=== PATIENT | female | born 1990 | race Caucasian/White ===

== ENCOUNTER 2017-04-10 18:17 | Inpatient (IN) | payer OTHER ==
[~2017-04-10] VITALS: Ht 167.6 cm; Wt 93.2 kg
[2017-04-15] MEDS: D5%-LACTATED RINGERS 1,000 ML IV SCH (21:09)
[2017-04-15] MEDS ORDERED: OXYTOCIN 30U/ 0.9% NaCL 500ML 500 ML IV ONE (21:09)
[2017-04-15 21:28] LABS: BASOPHILS # (AUTO) 0.11 x10^3/uL (0-0.1); BASOPHILS % (AUTO) 1 % (0-1); EOSINOPHILS # (AUTO) 0.05 x10^3/uL (0-0.4); EOSINOPHILS % (AUTO) 0 % (1-7); LYMPHOCYTES # (AUTO) 2.64 x10^3/uL (1-3.4); LYMPHOCYTES % (AUTO) 23 % (22-44); MD NO; MEAN CORPUSCULAR HEMOGLOBIN 31.3 pg (27.0-34.8); MEAN CORPUSCULAR HGB CONC 34.1 g/dL (32.4-35.8); MEAN CORPUSCULAR VOLUME 91.6 fL (80-100); MEAN PLATELET VOLUME 9.7 fL (7.4-10.4); MONOCYTES # (AUTO) 0.81 x10^3/uL (0.2-0.8); MONOCYTES % (AUTO) 7 % (2-9); NEUTROPHILS # (AUTO) 7.92 x10^3/uL (1.8-6.8); NEUTROPHILS % (AUTO) 69 % (42-75); PLATELET COUNT 240 x10^3/uL (130-400); RED BLOOD COUNT 4.08 x10^6/uL (3.82-5.3); RED CELL DISTRIBUTION WIDTH 14.5 % (9.6-15.2)
[2017-04-15 21:30] VITALS: BP 127/82
[2017-04-15] MEDS ORDERED: FENTANYL PF 100 MCG/2ML IV PRN (21:30)
[2017-04-15] MEDS ORDERED: ONDANSETRON 2MG/ML, 2ML IVPush PRN (21:30)
[2017-04-15] MEDS ORDERED: CALCIUM CARBONATE 500 MG TAB.CHEW PO PRN (21:30)
[2017-04-15] MEDS ORDERED: NEWBORN KIT ONE (21:33)
[2017-04-15] MEDS: LACTATED RINGERS 1,000 ML IV SCH (21:42)
[2017-04-15] MEDS ORDERED: MISOPROSTOL 25 MCG TABLET ONE (22:40)
[2017-04-15] MEDS: MISOPROSTOL 25 MCG TABLET SL PRN (22:50)
[2017-04-15] MEDS ORDERED: PREN1TAB60 PO (23:04)
[2017-04-15] MEDS ORDERED: iron PO (23:04)
[2017-04-16] MEDS ORDERED: MISOPROSTOL 25 MCG TABLET ONE ×3 (03:05→03:06)
[2017-04-16] MEDS: MISOPROSTOL 25 MCG TABLET SL PRN (03:08)
[2017-04-16] MEDS: D5%-LACTATED RINGERS 1,000 ML IV SCH ×3 (05:09→21:09)
[2017-04-16] MEDS ORDERED: FENTANYL PF 100 MCG/2ML ONE ×2 (06:00→07:42)
[2017-04-16] MEDS: FENTANYL PF 100 MCG/2ML IVPush PRN ×2 (06:06→07:45)
[2017-04-16] MEDS: LACTATED RINGERS 1,000 ML IV SCH ×5 (07:45→21:09)
[2017-04-16] MEDS ORDERED: FENTANYL/BUPIV./NS/PF 250 ML EPIDCONT ONE (09:15)
[2017-04-16] MEDS ORDERED: BUPIVACAINE 0.25% ONE (09:15)
[2017-04-16] MEDS ORDERED: FENTANYL/BUPIV./NS/PF 250 ML EPIDCONT SCH (09:46)
[2017-04-16] MEDS ORDERED: LACTATED RINGERS 1,000 ML IVBOLUS PRN (10:00)
[2017-04-16] MEDS ORDERED: OXYTOCIN 30U/ 0.9% NaCL 500ML 500 ML IV PRN (11:44)
[2017-04-16] MEDS ORDERED: OXYTOCIN 30U/ 0.9% NaCL 500ML 500 ML ONE (11:51)
[2017-04-16] MEDS ORDERED: ONDANSETRON 2MG/ML, 2ML ONE (16:16)
[2017-04-16] MEDS ORDERED: LIDOCAINE 1%, 20ML ONE (19:12)
[2017-04-16 19:24] VITALS: BP 108/66
[2017-04-17] MEDS ORDERED: RHOGAM FROM BLOOD BANK 1 NOTE EA IM/IV ONE
[2017-04-17] MEDS ORDERED: ONDANSETRON 2MG/ML, 2ML IV PRN
[2017-04-17] MEDS ORDERED: MAGNESIUM HYDROXIDE 8%, 30ML UDC PO PRN
[2017-04-17] MEDS ORDERED: CALCIUM CARBONATE 500 MG TAB.CHEW PO PRN
[2017-04-17] MEDS ORDERED: DIPH,PERTUSS(ACELL),TET VAC/PF NC IM-VACC PRN
[2017-04-17] MEDS ORDERED: MEASLES,MUMPS&RUBELLA VACC/PF 0.5 ML SQ PRN
[2017-04-17] MEDS ORDERED: MISOPROSTOL 200 MCG TABLET PR PRN
[2017-04-17] MEDS ORDERED: OXYcodone/APAP 5/325MG TABLET PO PRN
[2017-04-17] MEDS ORDERED: DOCUSATE 100 MG CAPSULE PO PRN
[2017-04-17] MEDS ORDERED: ACETAMINOPHEN 325 MG TABLET PO PRN ×2
[2017-04-17] MEDS ORDERED: IBUPROFEN 600 MG TABLET ONE (01:39)
[2017-04-17] MEDS ORDERED: OXYTOCIN 30U/ 0.9% NaCL 500ML 500 ML ONE (01:40)
[2017-04-17] MEDS: IBUPROFEN 600 MG TABLET PO PRN ×3 (01:42→14:16)
[2017-04-17] MEDS: OXYTOCIN 30U/ 0.9% NaCL 500ML 500 ML IV SCH ×3 (01:44→19:49)
[2017-04-17] MEDS: LACTATED RINGERS 1,000 ML IV SCH (01:46)
[2017-04-17 02:30] VITALS: BP 120/72
[2017-04-17 06:00] VITALS: BP 105/64
[2017-04-17 07:36] VITALS: BP 108/64
[2017-04-17] MEDS: PRENATAL VIT/IRON/FA 1 EACH TABLET PO SCH (08:01)
[2017-04-17] MEDS: OXYcodone/APAP 5/325MG TABLET PO PRN ×2 (08:01→14:16)
[2017-04-17 08:22] LABS: MEAN CORPUSCULAR HEMOGLOBIN 31.5 pg (27.0-34.8); MEAN CORPUSCULAR HGB CONC 34.1 g/dL (32.4-35.8); MEAN CORPUSCULAR VOLUME 92.3 fL (80-100); MEAN PLATELET VOLUME 9.4 fL (7.4-10.4); PLATELET COUNT 197 x10^3/uL (130-400); RED BLOOD COUNT 3.05 x10^6/uL (3.82-5.3); RED CELL DISTRIBUTION WIDTH 14.7 % (9.6-15.2)
[2017-04-17 08:48] LABS: BASOPHILS # (AUTO) 0.04 x10^3/uL (0-0.1); BASOPHILS % (AUTO) 0 % (0-1); EOSINOPHILS % (AUTO) 0 % (1-7); LYMPHOCYTES # (AUTO) 1.53 x10^3/uL (1-3.4); LYMPHOCYTES % (AUTO) 8 % (22-44); MD SCAN; MONOCYTES # (AUTO) 0.89 x10^3/uL (0.2-0.8); MONOCYTES % (AUTO) 5 % (2-9); NEUTROPHILS # (AUTO) 16.52 x10^3/uL (1.8-6.8); NEUTROPHILS % (AUTO) 87 % (42-75)
[2017-04-17] MEDS ORDERED: LIDOCAINE/MPF 2%-EPI 1:200K, 20 ML ONE (09:20)
[2017-04-17 12:15] VITALS: BP 99/64
[2017-04-17 16:50] VITALS: BP 101/72
[2017-04-17 19:13] VITALS: BP 102/59
[2017-04-17] MEDS ORDERED: MEASLES,MUMPS&RUBELLA VACC/PF 0.5 ML SQ-VACC ONE (20:30)
[2017-04-18] MEDS: OXYTOCIN 30U/ 0.9% NaCL 500ML 500 ML IV SCH (05:49)
[2017-04-18 07:35] VITALS: BP 113/69
[2017-04-18] MEDS: PRENATAL VIT/IRON/FA 1 EACH TABLET PO SCH (07:39)
[2017-04-18] MEDS: OXYcodone/APAP 5/325MG TABLET PO PRN (07:39)
[2017-04-18] MEDS: IBUPROFEN 600 MG TABLET PO PRN (07:40)
[2017-04-18] MEDS ORDERED: OXYC-302 PO (14:26)
== END 2017-04-18 15:00 | disposition home or self-care (01) | DRG 775 ==
LOC: UNDOADMIN 04-15 20:55 → LDIP 04-15 20:55 → 2NW 04-17 02:24
PROVIDERS: ADMIT Obstetrics & Gynecology; ATTEND Obstetrics & Gynecology
PROC: 10E0XZZ Delivery of Products of Conception, External Approach (ICD-10-PCS; principal; 2017-04-17)
PROC: 0KQM0ZZ Repair Perineum Muscle, Open Approach (ICD-10-PCS; 2017-04-17)
PROC: 3E0R3BZ Introduction of Anesthetic Agent into Spinal Canal, Percutaneous Approach (ICD-10-PCS; 2017-04-17)
PROC: 00HU33Z Insertion of Infusion Device into Spinal Canal, Percutaneous Approach (ICD-10-PCS; 2017-04-17)
DX: O70.1 Second degree perineal laceration during delivery (principal); Z37.0 Single live birth; Z3A.40 40 weeks gestation of pregnancy; Z82.3 Family history of stroke; Z82.49 Family history of ischemic heart disease and other diseases of the circulatory system; Z83.3 Family history of diabetes mellitus
CPT/HCPCS: 36415; 82803; 85025; 86850; 86900; J2405; J3010; J3490; J2590; J7120

== ENCOUNTER 2019-05-05 17:42 | Inpatient (IN) | payer BC ==
[~2019-05-05] VITALS: Ht 167.6 cm; Wt 90.9 kg
[~2019-05-05 17:42] MED LIST: OXYC-302 PO; PREN1TAB60 PO; iron PO
[2019-05-05] MEDS ORDERED: LIDOCAINE 1%, 20ML ONE (17:52)
[2019-05-05] MEDS ORDERED: MISOPROSTOL 200 MCG TABLET ONE (17:52)
[2019-05-05] MEDS ORDERED: OXYTOCIN 30U/ 0.9% NaCL 500ML 500 ML ONE ×2 (17:52→18:38)
[2019-05-05] MEDS ORDERED: NEWBORN KIT ONE (17:59)
[2019-05-05] MEDS: OXYTOCIN 30U/ 0.9% NaCL 500ML 500 ML IV SCH ×2 (18:13→18:40)
[2019-05-05] MEDS ORDERED: FENTANYL PF 100 MCG/2ML ONE (18:13)
[2019-05-05] MEDS ORDERED: ACETAMINOPHEN 325 MG TABLET PO PRN (19:00)
[2019-05-05] MEDS ORDERED: MISOPROSTOL 200 MCG TABLET PO PRN (19:00)
[2019-05-05] MEDS ORDERED: ONDANSETRON 2MG/ML, 2ML IV PRN (19:00)
[2019-05-05] MEDS ORDERED: SIMETHICONE 80 MG CHEW TAB PO PRN (19:00)
[2019-05-05] MEDS ORDERED: OXYcodone IR 5MG TABLET PO PRN (19:00)
[2019-05-05] MEDS ORDERED: DOCUSATE 100 MG CAPSULE PO PRN (19:00)
[2019-05-05] MEDS: LACTATED RINGERS 1,000 ML IV SCH ×2 (19:47→23:54)
[2019-05-05] MEDS ORDERED: FENTANYL PF 100 MCG/2ML IVPush PRN (20:00)
[2019-05-05 21:00] VITALS: BP 102/66
[2019-05-05] MEDS: IBUPROFEN 600 MG TABLET PO PRN (21:00)
[2019-05-05 23:49] VITALS: BP 104/65
[2019-05-06 05:20] VITALS: BP 106/67
[2019-05-06 06:09] LABS: BASOPHILS # (AUTO) 0.04 x10^3/uL (0-0.1); BASOPHILS % (AUTO) 0 % (0-1); EOSINOPHILS # (AUTO) 0.01 x10^3/uL (0-0.4); EOSINOPHILS % (AUTO) 0 % (1-7); LYMPHOCYTES # (AUTO) 2.81 x10^3/uL (1-3.4); LYMPHOCYTES % (AUTO) 19 % (22-44); MD NO; MEAN CORPUSCULAR HEMOGLOBIN 30.9 pg (27.0-34.8); MEAN CORPUSCULAR HGB CONC 33.1 g/dL (32.4-35.8); MEAN CORPUSCULAR VOLUME 93.4 fL (80-100); MEAN PLATELET VOLUME 8.4 fL (7.4-10.4); MONOCYTES % (AUTO) 6 % (2-9); NEUTROPHILS # (AUTO) 10.78 x10^3/uL (1.8-6.8); NEUTROPHILS % (AUTO) 74 % (42-75); PLATELET COUNT 259 x10^3/uL (130-400); RED BLOOD COUNT 3.36 x10^6/uL (3.82-5.3); RED CELL DISTRIBUTION WIDTH 14.3 % (9.6-15.2)
[2019-05-06 08:00] VITALS: BP 108/71
[2019-05-06] MEDS: IBUPROFEN 600 MG TABLET PO PRN ×2 (08:00→15:53)
[2019-05-06] MEDS ORDERED: PRENATAL VIT/IRON/FA 1 EACH TABLET PO SCH (09:00)
[2019-05-06] MEDS ORDERED: IBUP-1222 PO (12:46)
[2019-05-06 13:45] VITALS: BP 103/67
== END 2019-05-06 19:06 | disposition home or self-care (01) | DRG 806 ==
LOC: LDIP 17:42 → 2NW 20:35
PROVIDERS: ADMIT Obstetrics & Gynecology; ATTEND Obstetrics & Gynecology
PROC: 10E0XZZ Delivery of Products of Conception, External Approach (ICD-10-PCS; principal; 2019-05-05)
PROC: 0KQM0ZZ Repair Perineum Muscle, Open Approach (ICD-10-PCS; 2019-05-05)
PROC: 3E0234Z Introduction of Serum, Toxoid and Vaccine into Muscle, Percutaneous Approach (ICD-10-PCS; 2019-05-06)
DX: O99.354 Diseases of the nervous system complicating childbirth (principal); D62 Acute posthemorrhagic anemia; Z37.0 Single live birth; O99.02 Anemia complicating childbirth; G43.909 Migraine, unspecified, not intractable, without status migrainosus; O70.1 Second degree perineal laceration during delivery; Z3A.38 38 weeks gestation of pregnancy; Z82.49 Family history of ischemic heart disease and other diseases of the circulatory system; Z83.3 Family history of diabetes mellitus
CPT/HCPCS: 36415; 85025; 85461; 86850; 86900; G0378; J2790; J2590